=== PATIENT | male | born 1940 | race Caucasian/White ===

== ENCOUNTER 2016-10-08 08:52 | Day surgery (SDC) | payer MEDICARE ==
[~2016-10-08] VITALS: Ht 172.7 cm; Wt 103.4 kg
[~2016-10-08 08:52] MED LIST: ALEN70TA51 PO; ALPR0.5T8 PO; AMLO10TA3 PO; ASPI-973 PO; ESCI5SOL4 PO; GABA-502 PO; GLUC-120 PO; LEVO1CAP3 PO; LOSA100T29 PO; LUBI8CAP4 PO; OMEP20TA86 PO; OXYC-474 PO; PRAV40TA PO; TAMS0.4C98 PO
[2016-10-08] MEDS ORDERED: fentaNYL-PF 50 mCg/mL 2 mL Inj ONE (08:53)
[2016-10-08] MEDS ORDERED: Propofol 10 mg/mL 20 mL Inj ONE (08:53)
[2016-10-08 10:09] VITALS: BP 126/76; PULSE 66; RESP 16; O2SAT 96
[2016-10-08] MEDS: Lactated Ringer's 1,000 ML IV ONE ×2 (10:33→11:04)
[2016-10-08 11:08] VITALS: BP 116/73; PULSE 56; RESP 16; O2SAT 95
[2016-10-08 11:18] VITALS: BP 116/76; PULSE 58; RESP 15; O2SAT 67
[2016-10-08 11:28] VITALS: BP 118/78; PULSE 67; RESP 15; O2SAT 96
--- NOTE | 2016-10-08 12:39 | ENDO ---
[address] [address] ENDOSCOPY PROCEDURE PATIENT: JUANA BARRIOS : 1940 MR#: [id number] ADMIT: 10/08/2016 JOB ID: [id number] PROCEDURE: Esophagogastroduodenoscopy (EGD). INDICATION: Gastroesophageal reflux. ANESTHESIA: The patient's ASA classification, Mallampati score, and medications are as per anesthesia note. INSTRUMENT USED: GIF H 180 J PROCEDURE DETAILS: After informed consent was obtained, the patient was brought to the GI suite, where he was placed on oxygen via nasal cannula and monitored with continuous pulse oximeter, telemetry, and blood pressure monitoring. A time-out was performed, then he was placed in the left lateral decubitus position and medications were administered for sedation. A bite block was placed. The standard EGD scope was inserted through the bite block and advanced under direct visualization to the second portion of duodenum without difficulty. FINDINGS: 1. Normal appearing duodenal bulb, first and second portion. 2. Normal appearing pylorus, antrum, and gastric body. 3. Retroflexed views in the gastric body revealed a normal-appearing cardia and fundus. 4. Multiple random biopsies were obtained in the antrum and body of the stomach to rule out H. pylori. 5. The GE junction was regular at 40 cm. 6. Normal appearing esophagus. IMPRESSION: Normal esophagogastroduodenoscopy exam to second portion of duodenum. RECOMMENDATIONS: 1. Reflux precautions. 2. Proceed to colonoscopy. COMPLICATIONS: None. ESTIMATED BLOOD LOSS: Less than 5 mL. PROCEDURE PERFORMED: Colonoscopy. INDICATION: Colon cancer screening. ANESTHESIA: Please see above for ASA classification, Mallampati score, and medications. INSTRUMENT USED: PCF H 180 AL PREPARATION QUALITY: Fair. PROCEDURE DETAILS: After esophagogastroduodenoscopy was completed, the patient was then turned and a digital rectal exam was performed, which was unremarkable. The colonoscope was then inserted into the rectum and advanced under direct visualization to the terminal ileum which was identified by the presence of the ileocecal valve and the villous appearing mucosa of the terminal ileum. Once the terminal ileum was reached, the colonoscope was withdrawn back into the rectum as the mucosa and lumen were examined. In the rectum, retroflexion was performed. Following retroflexion, the remaining air in the rectum was suctioned and the procedure was completed. FINDINGS: 1. At the ileocecal valve there was an approximately 8 mm ulcer with an island of what appeared to be normal appearing tissue. Multiple biopsies were obtained. 2. Multiple biopsies were obtained in the terminal ileum. 3. The remainder of the colon exam was otherwise unremarkable except for a few scattered diverticula in the sigmoid colon. 4. In the distal rectum there was a diminutive polyp that was removed cold biopsy forceps. IMPRESSION: 1. Ileocecal (IC) valve ulcer. 2. Rectal polyp. 3. Scattered sigmoid diverticulosis. RECOMMENDATIONS: 1. Fiber rich diet. 2. Await biopsy results. 3. Follow up in GI clinic. COMPLICATIONS: None. ESTIMATED BLOOD LOSS: Less than 5 mL.
--- NOTE | 2016-10-08 12:46 | PCM.HPANE ---
Patient Data Surgeon Admitting Provider: Attending Provider:Aleks Ann MD Primary Care Physician:Shankar Tolentino MD Other Provider:Kristy Chambersingham Anesthesia Reason for Visit Colon Cancer Screening, Gerd Ht/WT & BMI Body Mass Index Allergies Coded Allergies: clarithromycin (Verified Allergy, Intermediate, Hives, 10/07/16) Uncoded Allergies: VIAXON (Allergy, Unknown, Hives, 12/06/14) Past Anesthesia History Anesthesia History: Denies:: Abnormal Airway, Anesthesia Reactions, Difficult Intubation, Fam Anesthesia Reaction, Fam Malignant Hypertherm, Malignant Hyperthermia Diabetes History Hx Diabetes?: No Medications Reported Medications Tamsulosin (Flomax)0.4 Mg Capsule0.4 Mg PO DAILY Ref 0 10/07/16 Pravastatin 40 Mg Wujyaa90 Mg PO DAILY Ref 0 10/07/16 Oxycodone (Roxicodone)5 Mg Tablet5 Mg PO Q4H PRN For Pain Ref 0 10/07/16 Omeprazole 20 Mg Tablet.dr20 Mg PO BID Ref 0 10/07/16 Levomefolate/B6/B12/Algal Oil (Metanx Capsule)1 Each Capsule1 Each PO 10/07/16 Losartan Potassium 100 Mg Fbpzsc886 Mg PO 10/07/16 Gluc 2Kcl/Chondr/Butch Hy/Hy AC (Glucosamine & Chondroitin Cap)1 Each Capsule1 Each PO 10/07/16 Gabapentin 300 Mg Mlwcffv423 Mg PO DAILY Ref 0 10/07/16 Escitalopram Oxalate 5 Mg/5 Ml Cfdebgkh60 Mg PO DAILY #1 BOTTLE Ref 0 10/07/16 Aspirin 81 Mg Axrzfa68 Mg PO DAILY Ref 0 10/07/16 Amlodipine 10 Mg Leotwf42 Mg PO DAILY Ref 0 10/07/16 Lubiprostone (Amitiza)8 Mcg Capsule8 Mcg PO 10/07/16 Alprazolam 0.5 Mg Tablet0.5 Mg PO BID PRN For Anxiety Ref 0 10/07/16 Alendronate (Binosto)70 Mg Tablet.eff70 Mg PO 10/07/16 History History of ENT Problems?: No HEENT History: Denies:: Abnormal Airway Cataracts Difficult Intubation Dysphagia Glaucoma Hearing Problem Sinus Problem TMJ Denture Type: Full- Upper Teeth Condition: Missing Teeth Hx of Heart Problems?: No Cardiovascular History: Positive for:: Hypertension Denies:: AICD Abdominal Aortic Aneurism Atrial Fibrillation Cardiac Surgery Chest Pain Congestive Heart Failure Coronary Artery Disease Edema Heart Murmur Irregular Heartbeat Pacemaker Peripheral Vascular Rheumatic Fever Thrombophlebitis Valvular Heart Disease Hx of Respiratory Problem?: No Respiratory History: Denies:: Asthma COPD Chest Surgery Cough Dyspnea Emphysema Hemoptysis Oxygen Administration Pneumonia Pulmonary Embolism Tuberculosis Use of C-PAP Machine Use of Inhalers / NEBS Hx Neurologic Problems?: Yes Neurological History: Positive for:: CVA Denies:: Alzheimer's Disease Dementia Dizziness Headaches Multiple Sclerosis Parkinson's Disease Peripheral Neuropathy Seizures TIA Hx of GI Problems?: Yes Gastrointestinal History: Positive for:: Gastroesphageal Reflux Hx of Problems?: No Hx Musculoskeletal Problems?: No Hx Surgeries?: Yes Hx Diabetes: No Hx Alcohol Use: NoHx Substance Use: No Smoking Status: Former Smoker Have You Smoked inLast 12 mo: No Stop/Bang Risk Assessment Category Category 1A: Patient has history of documented sleep apnea, and HAS NOT received any narcotic, sedative or anesthesia administration during this stay. Category 1B: Patient has history of documented sleep apnea, and HAS received any narcotic , sedative or anesthesia administration during this stay Category 2: Patient has SUSPECTED Obstructive Sleep Apnea, and HAS received any narcotic , sedative or anesthesia administration during this stay. Category 3: Patient has SUSPECTED Obstructive Sleep Apnea and HAS NOT received narcotic, sedative or anesthesia administration during this stay. Category 4: Outpatient in Procedural Areas with known sleep apnea or who screen positive for High Risk via the STOP/BANG questionnaire. Exam Exam General Appearance: Alert, Oriented X3, Cooperative, No Acute Distress HEENT/AIRWAY: MP 2 Lungs: Clear to Auscultation Heart: Exam Unremarkable Plan Impression Patient chart reviewed, patient interviewed and anesthestic plan with risks, benefits, and alternatives discussed, and informed consent obtained. ASA Physical Status: ASA3 Severe Disease Anesthetic Plan: MAC Bene/Risks/Altern/Consents: Yes HP Complete Prior to Induction: Yes Hermes De Leon MD Oct 08, 2016 09:29
--- NOTE | 2016-10-12 11:38 | PATH ---
SURGICAL PATHOLOGY Attending Physician:Gil Urias CASE STATUS: Signed Out PATIENT NAME: JUANA BARRIOS PID: [id number] : 1940 DATE COLLECTED:10/08/2016 16:34 SPECIMEN: 1: Gastric, Biopsy 2: Ileum, Biopsy 3: Small Intestine/Bowel, Biopsy 4: Rectum, Biopsy CLINICAL HISTORY: 1. GASTRIC BXS R/O H.PYLORI 2. TI BXS 3. ICV ULCER BXS 4. RECTAL POLYP FINAL DIAGNOSIS: 1.GASTRIC BIOPSIES: BODY-TYPE MUCOSA WITH NO DIAGNOSTIC ABNORMALITY. Negative for Helicobacter pylori organisms. Negative for intestinal metaplasia. Negative for dysplasia and malignancy. 2.TERMINAL ILEUM BIOPSIES: NORMAL TERMINAL ILEUM MUCOSA. No inflammation identified. Negative for dysplasia and malignancy. 3.ICV ULCER BIOPSIES: COLONIC MUCOSA WITH FOCAL ACTIVE INFLAMMATION. Negative for granulomas, dysplasia and malignancy. 4.RECTAL POLYP: BENIGN COLONIC MUCOSA WITH MILD REACTIVE CHANGES. Negative for dysplasia and malignancy. Multiple microscopic levels examined. ICD10 K52.9 GROSS DESCRIPTION: Received are four formalin-filled containers, each labeled with the patient' s name. 1. Received in formalin, labeled with the patient' s name and "gastric BX", are two fragments of anderson, soft tissue ranging in size from 0.1 x 0.1 x 0.1 cm to 0.2 x 0.1 x 0.1 cm. All fragments are totally submitted in cassette 1A. 2. Received in formalin, labeled with the patient' s name and "TI BX", are two fragments of anderson, soft tissue ranging in size from 0.1 x 0.1 x 0.1 cm to 0.2 x 0.1 x 0.1 cm. All fragments are totally submitted in cassette 2A. 3. Received in formalin, labeled with the patient' s name and "ICU ulcer BX", is one fragment of anderson, soft tissue measuring 0.2 x 0.1 x 0.1 cm. The fragment is totally submitted in cassette 3A. 4. Received in formalin, labeled with the patient' s name and "rectal polyp", are two fragments of anderson, soft tissue ranging in size from 0.1 x 0.1 x 0.1 cm to 0.2 x 0.1 x 0.1 cm. All fragments are totally submitted in cassette 4A. ([id number]) MICRO DESCRIPTION: See diagnosis. ICD-9 CODES: CPT CODES: 1: 37454 2: 31554 3: 58991 4: 45301 Electronically Signed Out Christi Mcgregor MD [facility] [address], [place] [address] Technical component performed at [facility], [facility] [address], [place], [address]
== END 2016-10-08 23:59 | disposition home or self-care (01) ==
LOC: END 08:52
PROVIDERS: ATTEND Internal Medicine Gastroenterology
DX: Z12.11 Encounter for screening for malignant neoplasm of colon (principal); Z86.010 Personal history of colon polyps; K62.1 Rectal polyp; K63.3 Ulcer of intestine; K57.30 Diverticulosis of large intestine without perforation or abscess without bleeding; K21.9 Gastro-esophageal reflux disease without esophagitis; K59.00 Constipation, unspecified; I10 Essential (primary) hypertension; I25.10 Atherosclerotic heart disease of native coronary artery without angina pectoris; I69.354 Hemiplegia and hemiparesis following cerebral infarction affecting left non-dominant side; E78.5 Hyperlipidemia, unspecified; M81.0 Age-related osteoporosis without current pathological fracture; F32.9 Major depressive disorder, single episode, unspecified; N40.0 Benign prostatic hyperplasia without lower urinary tract symptoms; M54.2 Cervicalgia; F41.8 Other specified anxiety disorders; G89.29 Other chronic pain; Z79.891 Long term (current) use of opiate analgesic; Z85.51 Personal history of malignant neoplasm of bladder; Z87.891 Personal history of nicotine dependence; Z79.82 Long term (current) use of aspirin
CPT/HCPCS: 43239; 45380; J3010; J7120